=== PATIENT | female | born 1945 | race Caucasian/White ===

== ENCOUNTER 2016-10-19 13:57 | Emergency (ER) | payer OTHER ==
[~2016-10-19] VITALS: Ht 162.6 cm; Wt 109.1 kg
[~2016-10-19 13:57] MED LIST: ASPIRIN 32325 MG/TAB PO; ASPIRIN 81M81 MG/TA2 PO; COLACE 100100 MG/CAP PO; DOXYCYCLINE 10100 MG PO; GENTAMICIN EYE D5 ML OS; GLUCOPHAGE500 MG/TAB PO; GLUMETZA500 MG; INSHUMULINN; KEPPRA 500MG500 MG PO; KEPPRA1000 MG PO; LEVEMIR100 U/ML SC; LIPITOR 10MG10 MG PO; LORTAB 5/500 501 TAB PO; MULTIPLE VITAMI1 CAP; NOVOLOG 100U100 U/M1 SC; PEPCID 20MG TAB20 MG PO; PREMARIN .3MG0.3 MG; TYLENOL W/COD1 UDTAB PO; ULTRACET TABL1 UDTAB PO; VASOTEC 2.2.5 MG/TAB; VASOTEC20 MG PO
[2016-10-19 14:00] VITALS: TEMP 97.8
[2016-10-19 15:03] LABS: INFLUENZA B NEGATIVE
[2016-10-19 16:06] LABS: BASO # 0.1 (0.0-0.2); BASO % 0.8 % (0.0-2.0); EOS # 0.1 (0.0-0.7); EOS % 1.8 % (0-4.0); GRAN # 3.2 (1.4-6.5); GRAN % 48.6 % (42.2-75.2); HEMOGLOBIN 12.1 g/dl (12.5-16.0); LYMPH # 2.7 (1.2-3.4); LYMPH % 40.8 % (20.0-51.0); MEAN CELL VOLUME 86 fl (80.0-100.0); MEAN CORPUSCULAR HEMOGLOBIN 27 pg (27.0-31.0); MEAN CORPUSCULAR HGB CONC 32 g/dl (33.0-37.0); MEAN PLATELET VOLUME 10.7 fl (7.4-10.4); MONO # 0.5 (0.1-0.6); MONO % 7.8 % (1.7-9.3); PLATELET COUNT 287 K/mm3 (130-400); RED BLOOD COUNT 4.41 M/mm3 (4.10-5.30); REDCELL DISTRIBUTION WIDTH-CV 14.2 % (11.5-14.5); WHITE BLOOD COUNT 6.5 K/mm3 (4.8-10.8)
[2016-10-19 16:22] LABS: ADJUSTED CALCIUM 9.2 mg/dL (8.4-10.2); ALBUMIN 4.1 gm/dL (3.5-5.0); BILIRUBIN,TOTAL 0.8 mg/dL (0.0-1.0); CALCIUM 9.3 mg/dL (8.4-10.2); CREATININE, serum 0.85 mg/dL (0.52-1.25); POTASSIUM 3.9 mmol/L (3.4-5.0); TOTAL PROTEIN 8.3 gm/dL (6.4-8.2)
[2016-10-19] MEDS ORDERED: PROAIR HFA0.09 MG/AC IH (16:38)
[2016-10-19 16:49] VITALS: BP 152/92; PULSE 94
== END 2016-10-19 16:50 | disposition home or self-care (01) ==
LOC: COL.ER 13:57
PROVIDERS: Nurse Practitioner
DX: R50.9 Fever, unspecified (principal); B34.9 Viral infection, unspecified; R06.2 Wheezing; R05 Cough; M79.1 Myalgia; E11.9 Type 2 diabetes mellitus without complications; I10 Essential (primary) hypertension; Z88.0 Allergy status to penicillin; Z79.4 Long term (current) use of insulin

== ENCOUNTER 2016-10-25 20:01 | Observation (INO) | payer OTHER ==
[~2016-10-25] VITALS: Ht 167.6 cm; Wt 89.0 kg
[~2016-10-25 20:01] MED LIST changes: +PROAIR HFA0.09 MG/AC IH
[2016-10-25 21:02] LABS: HEMATOCRIT 38.2 % (37.0-47.0); HEMOGLOBIN 12.5 g/dl (12.5-16.0); MEAN CELL VOLUME 83 fl (80.0-100.0); MEAN CORPUSCULAR HEMOGLOBIN 27 pg (27.0-31.0); MEAN CORPUSCULAR HGB CONC 33 g/dl (33.0-37.0); MEAN PLATELET VOLUME 10.7 fl (7.4-10.4); PLATELET COUNT 236 K/mm3 (130-400); RED BLOOD COUNT 4.61 M/mm3 (4.10-5.30); REDCELL DISTRIBUTION WIDTH-CV 13.8 % (11.5-14.5); WHITE BLOOD COUNT 5.9 K/mm3 (4.8-10.8)
[2016-10-25 21:05] LABS: ADD PATHOLOGY DIFF REVIEW NO
[2016-10-25 21:18] LABS: ADJUSTED CALCIUM 9.3 mg/dL (8.4-10.2); ALANINE AMINOTRANSFERASE 70 U/L (9-52); ALBUMIN 4.1 gm/dL (3.5-5.0); ALKALINE PHOSPHATASE 56 U/L (50-136); ANION GAP 14 mmol/L (7-16); BLOOD UREA NITROGEN 15 mg/dL (7-17); C-REACTIVE PROTEIN 2.3 mg/dL (0.0-0.9); CALCIUM 9.4 mg/dL (8.4-10.2); CARBON DIOXIDE 24 mmol/L (22-30); CHLORIDE 97 mmol/L (98-107); CREATININE, serum 0.98 mg/dL (0.52-1.25); GLUCOSE 211 mg/dL (74-106); LIPASE 111 U/L (23-300); POTASSIUM 3.6 mmol/L (3.4-5.0); SODIUM 135 mmol/L (137-145); TOTAL PROTEIN 8.2 gm/dL (6.4-8.2)
[2016-10-25 21:27] LABS: BAND 23 % (0-10); NEUTROPHILS 23 % (42.0-75.2); PLATELET ESTIMATE NORMAL (NORMAL); TOTAL CELLS COUNTED 100
[2016-10-25 21:29] LABS: TROPONIN-I < 0.012 ng/mL (0.000-0.034)
[2016-10-25 22:31] LABS: PH 5 (5-8); URINE APPEARANCE Hazy; URINE BACTERIA Rare /hpf; URINE BILIRUBIN Negative (NEGATIVE); URINE BLOOD 1+ (NEGATIVE); URINE COLOR Yellow; URINE GLUCOSE Negative (NEGATIVE); URINE KETONE Negative (NEGATIVE); URINE RBC 20-50 /hpf; URINE UROBILINOGEN Negative (NEGATIVE); URINE WBC >50 /hpf
[2016-10-25 23:20] VITALS: BP 110/62; PULSE 72; TEMP 98.4
[2016-10-26 04:53] VITALS: BP 101/56; PULSE 69; TEMP 98
[2016-10-26 09:24] VITALS: BP 106/64; PULSE 61; TEMP 97.6
[2016-10-26 12:35] LABS: ADJUSTED CALCIUM 8.8 mg/dL (8.4-10.2); ALBUMIN 3.6 gm/dL (3.5-5.0); CALCIUM 8.5 mg/dL (8.4-10.2); CREATININE, serum 0.82 mg/dL (0.52-1.25); POTASSIUM 4.7 mmol/L (3.4-5.0); TOTAL PROTEIN 7.6 gm/dL (6.4-8.2)
[2016-10-26 12:37] LABS: MEAN CELL VOLUME 84 fl (80.0-100.0); MEAN CORPUSCULAR HGB CONC 32 g/dl (33.0-37.0); MEAN PLATELET VOLUME 10.6 fl (7.4-10.4); PLATELET COUNT 221 K/mm3 (130-400); RED BLOOD COUNT 4.14 M/mm3 (4.10-5.30); REDCELL DISTRIBUTION WIDTH-CV 13.9 % (11.5-14.5); WHITE BLOOD COUNT 4.6 K/mm3 (4.8-10.8)
[2016-10-26 12:40] LABS: HEMATOCRIT 34.9 % (37.0-47.0); HEMOGLOBIN 11.1 g/dl (12.5-16.0); MEAN CORPUSCULAR HEMOGLOBIN 27 pg (27.0-31.0)
[2016-10-26 13:27] VITALS: BP 115/62; PULSE 66; TEMP 97.5
[2016-10-26 17:21] VITALS: BP 118/63; PULSE 78; TEMP 97.5
[2016-10-26 22:29] VITALS: BP 143/79; PULSE 75; TEMP 98.1
[2016-10-27 06:14] VITALS: BP 118/66; PULSE 71; TEMP 98.1
[2016-10-27 10:06] VITALS: BP 139/82; PULSE 81; TEMP 98.4
[2016-10-27] MEDS ORDERED: PRILOSEC 20MG20 MG PO (11:39)
== END 2016-10-27 11:55 | disposition home or self-care (01) ==
LOC: COL.ER 20:01 → SDCO 22:32 → SURG 23:00 → SDCO 23:01 → SURG 23:01
PROVIDERS: Emergency Medicine; Surgery
DX: R07.89 Other chest pain (principal); R10.11 Right upper quadrant pain; K80.20 Calculus of gallbladder without cholecystitis without obstruction; E11.9 Type 2 diabetes mellitus without complications; R93.8 Abnormal findings on diagnostic imaging of other specified body structures; R56.9 Unspecified convulsions; I10 Essential (primary) hypertension; E78.5 Hyperlipidemia, unspecified; Z79.84 Long term (current) use of oral hypoglycemic drugs; Z79.899 Other long term (current) drug therapy; Z79.82 Long term (current) use of aspirin; Z86.011 Personal history of benign neoplasm of the brain; Z79.4 Long term (current) use of insulin
CPT/HCPCS: OP; A9537; G0378; J1170; J1815; J1956; J2405; J7030; Q9967

== ENCOUNTER 2017-01-08 19:13 | Emergency (ER) | payer OTHER, MEDICAID ==
[~2017-01-08] VITALS: Ht 167.6 cm; Wt 99.1 kg
[~2017-01-08 19:13] MED LIST changes: +PRILOSEC 20MG20 MG PO
[2017-01-08 19:32] VITALS: TEMP 97.4
[2017-01-08 20:16] LABS: BASO % 0.6 % (0.0-2.0); EOS # 0.1 (0.0-0.7); EOS % 1.4 % (0-4.0); GRAN # 3.1 (1.4-6.5); GRAN % 49.7 % (42.2-75.2); HEMATOCRIT 38.9 % (37.0-47.0); HEMOGLOBIN 12.5 g/dl (12.5-16.0); LYMPH # 2.7 (1.2-3.4); LYMPH % 42.7 % (20.0-51.0); MEAN CELL VOLUME 83 fl (80.0-100.0); MEAN CORPUSCULAR HEMOGLOBIN 27 pg (27.0-31.0); MEAN CORPUSCULAR HGB CONC 32 g/dl (33.0-37.0); MEAN PLATELET VOLUME 10.6 fl (7.4-10.4); MONO # 0.3 (0.1-0.6); MONO % 5.4 % (1.7-9.3); PLATELET COUNT 266 K/mm3 (130-400); RED BLOOD COUNT 4.67 M/mm3 (4.10-5.30); REDCELL DISTRIBUTION WIDTH-CV 14.7 % (11.5-14.5); WHITE BLOOD COUNT 6.3 K/mm3 (4.8-10.8)
[2017-01-08 20:29] LABS: ANION GAP 14 mmol/L (7-16); BLOOD UREA NITROGEN 10 mg/dL (7-17); CALCIUM 9.2 mg/dL (8.4-10.2); CARBON DIOXIDE 23 mmol/L (22-30); CHLORIDE 103 mmol/L (98-107); CREATININE, serum 0.79 mg/dL (0.52-1.25); GLUCOSE 102 mg/dL (74-106); POTASSIUM 3.9 mmol/L (3.4-5.0); SODIUM 140 mmol/L (137-145)
[2017-01-08 20:42] LABS: TROPONIN-I < 0.012 ng/mL (0.000-0.034)
[2017-01-08] MEDS ORDERED: PREDNISONE20 MG PO (21:21)
[2017-01-08 21:30] VITALS: BP 123/76; PULSE 85
== END 2017-01-08 21:45 | disposition home or self-care (01) ==
LOC: COL.ER 19:13
PROVIDERS: Emergency Medicine
DX: T78.3XXA Angioneurotic edema, initial encounter (principal); R06.02 Shortness of breath; R42 Dizziness and giddiness; E11.9 Type 2 diabetes mellitus without complications; I10 Essential (primary) hypertension; Z79.4 Long term (current) use of insulin; G40.909 Epilepsy, unspecified, not intractable, without status epilepticus
CPT/HCPCS: J1200; J2930; J7030

== ENCOUNTER 2018-07-13 20:01 | Emergency (ER) | payer MEDICARE ==
[~2018-07-13 20:01] MED LIST changes: +PREDNISONE20 MG PO
[2018-07-13 20:12] VITALS: TEMP 98.4
[2018-07-13 20:32] LABS: BASO # 0.1 (0.0-0.2); BASO % 0.8 % (0.0-2.0); EOS # 0.2 (0.0-0.7); EOS % 1.9 % (0-4.0); GRAN # 3.5 (1.4-6.5); GRAN % 41.9 % (42.2-75.2); HEMATOCRIT 40.5 % (37.0-47.0); HEMOGLOBIN 13.1 g/dl (12.5-16.0); LYMPH # 4.1 (1.2-3.4); LYMPH % 48.9 % (20.0-51.0); MEAN CELL VOLUME 87 fl (80.0-100.0); MEAN CORPUSCULAR HEMOGLOBIN 28 pg (27.0-31.0); MEAN CORPUSCULAR HGB CONC 32 g/dl (33.0-37.0); MEAN PLATELET VOLUME 10.8 fl (7.4-10.4); MONO # 0.5 (0.1-0.6); MONO % 6.1 % (1.7-9.3); PLATELET COUNT 270 K/mm3 (130-400); RED BLOOD COUNT 4.68 M/mm3 (4.10-5.30); REDCELL DISTRIBUTION WIDTH-CV 13.9 % (11.5-14.5)
[2018-07-13 20:41] LABS: ALANINE AMINOTRANSFERASE 30 U/L (9-52); ALBUMIN 4.2 gm/dL (3.5-5.0); ALKALINE PHOSPHATASE 70 U/L (50-136); ANION GAP 7 mmol/L (7-16); AST,SGOT 30 U/L (15-37); BILIRUBIN,TOTAL 0.2 mg/dL (0.0-1.0); BLOOD UREA NITROGEN 18 mg/dL (7-17); CALCIUM 9.4 mg/dL (8.4-10.2); CARBON DIOXIDE 29 mmol/L (22-30); CHLORIDE 106 mmol/L (98-107); CREATININE, serum 1.04 mg/dL (0.52-1.25); GLUCOSE 190 mg/dL (74-106); POTASSIUM 4.4 mmol/L (3.4-5.0); SODIUM 141 mmol/L (137-145)
[2018-07-13 20:42] LABS: C-REACTIVE PROTEIN < 0.5 mg/dL (0.0-0.9)
[2018-07-13] MEDS ORDERED: LIPITOR 10MG10 MG PO (20:52)
[2018-07-13] MEDS ORDERED: FIORINAL W/CODE1 CA2 PO (20:53)
[2018-07-13] MEDS ORDERED: VITAMIND3 5000 (20:53)
[2018-07-13 20:55] LABS: PROLACTIN 10.4 ng/mL (3.0-18.6)
[2018-07-13] MEDS ORDERED: TEMOVATE0.05% TP (20:55)
[2018-07-13] MEDS ORDERED: BREO IH (20:57)
[2018-07-13] MEDS ORDERED: NEURONTIN300 MG/CAP PO (20:57)
[2018-07-13] MEDS ORDERED: NOVLOG SQ (21:00)
[2018-07-13] MEDS ORDERED: COZAAR 50MG50 MG/TAB PO (21:01)
[2018-07-13] MEDS ORDERED: LEVEMIR SQ (21:01)
[2018-07-13] MEDS ORDERED: VENTOLIN0.09 MG (21:03)
[2018-07-13] MEDS ORDERED: KEPPRA 500MG500 MG PO (21:06)
[2018-07-13 22:02] VITALS: BP 128/75; PULSE 90
== END 2018-07-13 22:10 | disposition home or self-care (01) ==
LOC: COL.ER 20:01
PROVIDERS: Emergency Medicine
DX: G40.909 Epilepsy, unspecified, not intractable, without status epilepticus (principal); E11.9 Type 2 diabetes mellitus without complications; Z79.4 Long term (current) use of insulin
CPT/HCPCS: J1953; J2060; J7030

== ENCOUNTER → 2018-08-07 | Outpatient (CLI) | payer MEDICARE ==
[~2018-08-07] MED LIST changes: +BREO IH; +COZAAR 50MG50 MG/TAB PO; +FIORINAL W/CODE1 CA2 PO; +LEVEMIR SQ; +NEURONTIN300 MG/CAP PO; +NOVLOG SQ; +TEMOVATE0.05% TP; +VENTOLIN0.09 MG; +VITAMIND3 5000
== END ==
LOC: COL.RAD 11:59
DX: I67.82 Cerebral ischemia (principal); G44.329 Chronic post-traumatic headache, not intractable; G40.109 Localization-related (focal) (partial) symptomatic epilepsy and epileptic syndromes with simple partial seizures, not intractable, without status epilepticus; D32.9 Benign neoplasm of meninges, unspecified
CPT/HCPCS: A9585

== ENCOUNTER 2018-10-01 10:19 | Emergency (ER) | payer MEDICARE ==
[~2018-10-01] VITALS: Ht 162.6 cm; Wt 95.5 kg
[2018-10-01 10:24] VITALS: TEMP 94.4
[2018-10-01 12:24] LABS: BASO # 0.1 (0.0-0.2); BASO % 0.5 % (0.0-2.0); EOS % 0.3 % (0-4.0); GRAN # 7.3 (1.4-6.5); GRAN % 72.3 % (42.2-75.2); HEMATOCRIT 38.8 % (37.0-47.0); HEMOGLOBIN 12.6 g/dl (12.5-16.0); LYMPH # 2.1 (1.2-3.4); LYMPH % 21.2 % (20.0-51.0); MEAN CELL VOLUME 85 fl (80.0-100.0); MEAN CORPUSCULAR HEMOGLOBIN 28 pg (27.0-31.0); MEAN CORPUSCULAR HGB CONC 33 g/dl (33.0-37.0); MONO # 0.5 (0.1-0.6); MONO % 5.4 % (1.7-9.3); PLATELET COUNT 192 K/mm3 (130-400); RED BLOOD COUNT 4.59 M/mm3 (4.10-5.30); REDCELL DISTRIBUTION WIDTH-CV 13.3 % (11.5-14.5)
[2018-10-01 14:01] LABS: ALBUMIN 4.1 gm/dL (3.5-5.0); BILIRUBIN,TOTAL 0.7 mg/dL (0.0-1.0); CALCIUM 8.9 mg/dL (8.4-10.2); CREATININE, serum 0.77 mg/dL (0.52-1.25); POTASSIUM 4.4 mmol/L (3.4-5.0); TOTAL PROTEIN 7.7 gm/dL (6.4-8.2)
[2018-10-01] MEDS ORDERED: NORCO 325 MG-51 TAB PO (14:35)
[2018-10-01 15:06] VITALS: BP 116/70; PULSE 88
== END 2018-10-01 15:05 | disposition home or self-care (01) ==
LOC: COL.ER 10:19
PROVIDERS: Physician Assistant
DX: M25.562 Pain in left knee (principal); M25.462 Effusion, left knee; M76.9 Unspecified enthesopathy, lower limb, excluding foot; E11.9 Type 2 diabetes mellitus without complications; G40.909 Epilepsy, unspecified, not intractable, without status epilepticus; Z79.4 Long term (current) use of insulin; Z79.82 Long term (current) use of aspirin
CPT/HCPCS: J1885; J2270; J2405; J7030

== ENCOUNTER 2018-10-16 11:33 | Emergency (ER) | payer MEDICARE ==
[~2018-10-16] VITALS: Ht 162.6 cm; Wt 100.0 kg
[~2018-10-16 11:33] MED LIST changes: +NORCO 325 MG-51 TAB PO
[2018-10-16 11:43] VITALS: TEMP 98.3
[2018-10-16] MEDS ORDERED: PERCOCET 325 MG1 TA2 PO (13:55)
[2018-10-16 14:33] VITALS: BP 128/81; PULSE 70
== END 2018-10-16 14:33 | disposition home or self-care (01) ==
LOC: COL.ER 11:33
DX: S42.292A Other displaced fracture of upper end of left humerus, initial encounter for closed fracture (principal); E11.9 Type 2 diabetes mellitus without complications; I10 Essential (primary) hypertension; Z79.4 Long term (current) use of insulin; Z79.82 Long term (current) use of aspirin; W18.39XA Other fall on same level, initial encounter; Y92.810 Car as the place of occurrence of the external cause
CPT/HCPCS: J2270

== ENCOUNTER 2020-12-18 19:20 | Emergency (ER) | payer MEDICARE ==
[~2020-12-18] VITALS: Ht 162.6 cm; Wt 100.0 kg
[~2020-12-18 19:20] MED LIST changes: +PERCOCET 325 MG1 TA2 PO
[2020-12-18 19:50] VITALS: TEMP 97.5
[2020-12-18 20:52] LABS: BASO % 0.4 % (0.0-2.0); EOS # 0.2 (0.0-0.7); EOS % 1.7 % (0-4.0); GRAN # 5.8 (1.4-6.5); GRAN % 61.1 % (42.2-75.2); HEMATOCRIT 37.2 % (37.0-47.0); HEMOGLOBIN 11.9 g/dl (12.5-16.0); LYMPH # 2.8 (1.2-3.4); LYMPH % 29.6 % (20.0-51.0); MEAN CELL VOLUME 83 fl (80.0-100.0); MEAN CORPUSCULAR HEMOGLOBIN 27 pg (27.0-31.0); MEAN CORPUSCULAR HGB CONC 32 g/dl (33.0-37.0); MEAN PLATELET VOLUME 10.3 fl (7.4-10.4); MONO # 0.7 (0.1-0.6); PLATELET COUNT 287 K/mm3 (130-400); RED BLOOD COUNT 4.46 M/mm3 (4.10-5.30); REDCELL DISTRIBUTION WIDTH-CV 13.9 % (11.5-14.5)
[2020-12-18 20:58] LABS: ALBUMIN 4.4 gm/dL (3.5-5.0); BILIRUBIN,TOTAL 0.6 mg/dL (0.0-1.0); C-REACTIVE PROTEIN 4.9 mg/dL (0.0-0.9); CALCIUM 8.9 mg/dL (8.4-10.2); CREATININE, serum 0.83 (0.52-1.25); POTASSIUM 4.1 mmol/L (3.4-5.0); TOTAL PROTEIN 8.6 gm/dL (6.4-8.2)
[2020-12-18 22:30] LABS: COLLECTION METHOD CLEAN CATCH
[2020-12-18 22:39] LABS: BUDDING YEAST Present /hpf; MUCOUS Present /lpf; PH 5 (5-8); URINE APPEARANCE Cloudy; URINE BACTERIA Rare /hpf; URINE BILIRUBIN Negative (NEGATIVE); URINE BLOOD 1+ (NEGATIVE); URINE COLOR Yellow; URINE GLUCOSE Negative (NEGATIVE); URINE KETONE Negative (NEGATIVE); URINE LEUKOCYTE ESTERASE 3+ (NEGATIVE); URINE NITRATE Negative (NEGATIVE); URINE PROTEIN(semi-quant) Negative (NEGATIVE); URINE RBC >50 /hpf; URINE UROBILINOGEN Negative (NEGATIVE)
[2020-12-18] MEDS ORDERED: CEFTIN500 MG PO (22:55)
[2020-12-18 23:05] VITALS: BP 137/77; PULSE 88
== END 2020-12-18 23:12 | disposition home or self-care (01) ==
LOC: COL.ER 19:20
PROVIDERS: Physician Assistant
DX: N30.90 Cystitis, unspecified without hematuria (principal); E11.9 Type 2 diabetes mellitus without complications; I10 Essential (primary) hypertension; J45.909 Unspecified asthma, uncomplicated; E78.5 Hyperlipidemia, unspecified; G40.909 Epilepsy, unspecified, not intractable, without status epilepticus; K21.9 Gastro-esophageal reflux disease without esophagitis; Z79.4 Long term (current) use of insulin; Z88.0 Allergy status to penicillin; Z79.899 Other long term (current) drug therapy; Z79.82 Long term (current) use of aspirin
CPT/HCPCS: J0696; J3010; J7030

== ENCOUNTER 2021-03-03 07:55 | Outpatient (CLI) | payer MEDICARE ==
[~2021-03-03] VITALS: Ht 162.6 cm; Wt 92.4 kg
[~2021-03-03 07:55] MED LIST changes: +CEFTIN500 MG PO
[2021-03-03] MEDS ORDERED: LASIX 20MG TABL20 MG PO (11:02)
[2021-03-03] MEDS ORDERED: K-DUR 10 MEQ T10 MEQ PO (11:03)
[2021-03-03 11:20] VITALS: BP 130/71; PULSE 78
--- NOTE | 2021-03-03 11:20 | NUR ---
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 pt does have an MRI of brain ordered with service time today of 1230. Our plan is to have pt stay in [facility] until MRI. After checking with [employer] technical lead senior developer, pt was given crackers and fluids which she tolerated with no problem. IV left in place for MRI.
[2021-03-03] MEDS ORDERED: NORVASC 5MG5 MG/TAB PO (11:31)
--- NOTE | 2021-03-03 13:00 | NUR ---
Pt to MRI at this time. I reviewed dc/rx and fu instructions with pt, [employer] management scientist was utilized for this interaction. IV left in place for MRI. Pt will be discharged from MRI. I called pt's daughter to update her on plan. Daughter is just outside Patient entrance. Umesh rey was given pt's daughter's phone number to contact when pt is done with MRI.
== END 2021-03-03 17:54 | disposition home or self-care (01) ==
LOC: COL.CAR 07:55
DX: R55 Syncope and collapse (principal); R06.00 Dyspnea, unspecified; R60.0 Localized edema; E78.49 Other hyperlipidemia; E11.36 Type 2 diabetes mellitus with diabetic cataract; N18.30 Chronic kidney disease, stage 3 unspecified; G40.109 Localization-related (focal) (partial) symptomatic epilepsy and epileptic syndromes with simple partial seizures, not intractable, without status epilepticus; J43.9 Emphysema, unspecified; Z79.82 Long term (current) use of aspirin; Z79.899 Other long term (current) drug therapy; Z79.4 Long term (current) use of insulin
CPT/HCPCS: A9585

== ENCOUNTER → 2021-05-07 | Outpatient (CLI) | payer MEDICARE ==
[~2021-05-07] MED LIST changes: +K-DUR 10 MEQ T10 MEQ PO; +LASIX 20MG TABL20 MG PO; +NORVASC 5MG5 MG/TAB PO
== END ==
LOC: COL.CARD 12:26
DX: R55 Syncope and collapse (principal); G40.109 Localization-related (focal) (partial) symptomatic epilepsy and epileptic syndromes with simple partial seizures, not intractable, without status epilepticus; D35.2 Benign neoplasm of pituitary gland

== ENCOUNTER → 2021-05-12 | Outpatient (CLI) | payer MEDICARE | LOC: COL.RAD 10:58 | DX: J35.8 Other chronic diseases of tonsils and adenoids (principal); R59.0 Localized enlarged lymph nodes | CPT/HCPCS: Q9967 ==

== ENCOUNTER 2024-03-22 17:37 | Emergency (ER) | payer MEDICARE ==
[~2024-03-22] VITALS: Ht 162.6 cm; Wt 102.3 kg
[2024-03-22 17:48] VITALS: BP 156/89; TEMP 98
[2024-03-22] MEDS ORDERED: TRIAMCINOLONE A15 G3 TP (18:22)
[2024-03-22 18:38] VITALS: PULSE 74
== END 2024-03-22 18:38 | disposition home or self-care (01) ==
LOC: COL.ER 17:37
DX: L25.9 Unspecified contact dermatitis, unspecified cause (principal)